=== PATIENT | male | born 1940 | race Hispanic/Latino ===

== ENCOUNTER 2016-07-11 08:31 | Day surgery (SDC) | payer MEDICARE ==
[~2016-07-11] VITALS: Ht 177.8 cm; Wt 102.0 kg
[~2016-07-11 08:31] MED LIST: AMLO10TA3 PO; CYAN500 PO; CYCL10TA9 PO; HYDR42CR3 TOPICAL; IBUP100T7 PO; LEVO750T39 PO; NALT50TA PO; PREN1TAB87 PO; Sodium Chloride LOK Flush 10 mL Syringe IV PRN; THIA100T64 PO; ZYL100 PO; fentaNYL-PF 50 mCg/mL 2 mL Inj IVPUSH PRN
[2016-07-11 08:49] VITALS: BP 141/82; PULSE 77; RESP 16; O2SAT 96
[2016-07-11] MEDS: 0.9% Sodium Chloride 1,000 ML IV PRN ×2 (09:25→09:54)
[2016-07-11 10:00] VITALS: BP 119/69; PULSE 70; RESP 16; O2SAT 93
[2016-07-11 10:10] VITALS: BP 118/75; PULSE 60; RESP 16; O2SAT 94
[2016-07-11 10:20] VITALS: BP 118/75; PULSE 63; RESP 16; O2SAT 94
[2016-07-11 10:30] VITALS: BP 120/81; PULSE 73; RESP 14; O2SAT 96
--- NOTE | 2016-07-11 11:44 | ENDO ---
[address] [address] ENDOSCOPY PROCEDURE PATIENT: JOCELYNE SANCHEZ : 1940 MR#: [id number] ADMIT: 07/11/2016 JOB ID: [id number] DATE: 07/11/2016 PRIMARY PROVIDER: Kendall Burnett MD PROCEDURE: Colonoscopy with hot snare polypectomy and cold forceps polypectomy. INDICATIONS: A 76-year-old male with a personal history of colon polyps returning for surveillance. EQUIPMENT: PCFH 180 AL. SEDATION: 1. 3 mg Versed. 2. 75 mcg fentanyl. COMPLICATIONS: None identified. BOWEL PREPARATION: Fair, adequate examination. PROCEDURAL INFORMATION: After the risks and benefits were explained, written and verbal informed consent was obtained. The patient was brought into the endoscopy suite and placed into the left lateral decubitus position. Sedation was achieved as above. A digital rectal examination was accomplished. No significant pathology appreciated. The scope was introduced into the rectum and advanced under direct visualization to the level of the cecum, as identified by the appendiceal orifice and ileocecal valve. The scope was slowly withdrawn to carefully examine the mucosa for any defects or lesions. Retroflexed views were avoided in the rectum. Multiple direct views were made through the dentate line for exclusion of pathology. The colon was decompressed. The scope removed from the patient who tolerated the procedure well. FINDINGS: The patient had some scattered diverticula even into the right colon. There was an approximately 6 mm sessile polyp removed with hot snare from the ascending colon. There was a diminutive approximately 3 mm polyp removed from the sigmoid colon using cold forceps. No other significant pathology was appreciated throughout. ENDOSCOPIC DIAGNOSIS: 1. Diverticulosis. 2. Colon polyps. RECOMMENDATIONS: 1. Await histopathology. 2. Repeat colonoscopy would typically be recommended for five years' time. This places the patient at age 81 and, therefore, it would be optional and contingent on overall health status at that time.
--- NOTE | 2016-07-13 14:59 | PATH ---
SURGICAL PATHOLOGY Attending Physician:Monse Elaine CASE STATUS: Signed Out PATIENT NAME: JOCELYNE SANCHEZ PID: [id number] : 1940 DATE COLLECTED:07/11/2016 16:51 SPECIMEN: 1: Colon, Biopsy 2: Colon, Biopsy CLINICAL HISTORY: 1). ASCENDING COLON POLYP 2). SIGMOID COLON POLYP FINAL DIAGNOSIS: 1.ASCENDING COLON POLYP: POLYPOID-SHAPED FRAGMENT OF COLON MUCOSA CONSISTENT WITH MUCOSAL POLYPOID REDUNDANCY. Negative for dysplasia and malignancy. 2.SIGMOID COLON POLYP: POLYPOID-SHAPED FRAGMENT OF COLON MUCOSA CONSISTENT WITH MUCOSAL POLYPOID REDUNDANCY. Negative for dysplasia and malignancy. ICD10 code K63.5 NOTE: As part of a routine quality process engineer, Dr. Delilah Thompson has also reviewed parts 1 and 2 of this case and agrees with the diagnosis. GROSS DESCRIPTION: The specimen is received in two formalin filled containers labeled with the patient's name. 1). The specimen is sublabeled "ascending colon polyp" and consists of a 0.4 x 0.3 x 0.1 CM portion of tissue which is entirely submitted in cassette 1A. 2). The specimen is sublabeled "sigmoid colon polyp" and consists of a 0.3 x 0.3 x 0.3 CM portion of tissue which is entirely submitted in cassette 2A. 07/11/2016 DAC MICRO DESCRIPTION: Sections for parts 1 and 2 are stated to be polyps from the ascending colon and sigmoid colon. Both specimens are similar. These are polypoid-shaped fragments of colon mucosa that appear essentially normal. Multiple serial sections are then prepared in order to identify any true polyp changes on deeper levels. These are all negative. Both lesions are therefore considered to be consistent with polypoid mucosal redundancies. ICD-9 CODES: CPT CODES: 1: 70273 2: 50045 Electronically Signed Out Tashi Marie MD [facility] [address] [facility], [place] [address] Technical component performed at [facility], [address], [place], [address]
== END 2016-07-11 23:59 | disposition home or self-care (01) ==
LOC: END 08:31
PROVIDERS: ATTEND Internal Medicine Gastroenterology
DX: Z12.11 Encounter for screening for malignant neoplasm of colon (principal); Z86.010 Personal history of colon polyps; K63.5 Polyp of colon; K57.30 Diverticulosis of large intestine without perforation or abscess without bleeding; I10 Essential (primary) hypertension; M10.9 Gout, unspecified; F10.10 Alcohol abuse, uncomplicated; Z87.891 Personal history of nicotine dependence
CPT/HCPCS: 45380; 45385; 99153; G0500; J2250; J3010; J7030